=== PATIENT | male | born 1955 | race African-American/Black ===

== ENCOUNTER 2023-01-17 08:35 | Emergency (ER) | payer MEDICARE, MEDICAID ==
[~2023-01-17] VITALS: Ht 182.9 cm; Wt 97.0 kg
[~2023-01-17 08:35] MED LIST: ASPI-1497 PO; BENA40TA91 PO
[2023-01-17 08:45] VITALS: O2SAT 98
[2023-01-17] MEDS ORDERED: BO1 TP (13:13)
[2023-01-17] MEDS ORDERED: NAPR-681 PO (13:13)
[2023-01-17 13:38] VITALS: BP 136/86; PULSE 84; RESP 16; TEMP 98.5
== END 2023-01-17 13:44 | disposition home or self-care (01) ==
LOC: ER 08:35
DX: S01.81XA Laceration without foreign body of other part of head, initial encounter (principal); E11.9 Type 2 diabetes mellitus without complications; I10 Essential (primary) hypertension; W06.XXXA Fall from bed, initial encounter; Y93.89 Activity, other specified; Y92.89 Other specified places as the place of occurrence of the external cause; Y99.8 Other external cause status
CPT/HCPCS: 99284